=== PATIENT | male | born 1985 ===

== ENCOUNTER 2018-01-29 02:24 | Inpatient (IN) | payer SELFPAY ==
--- NOTE | 2018-01-29 02:40 | C.PDOC ---
History Of Present Illness Patient presents with severe rlq abdominal pain after eating a sandwich at lunch. Pt hyperventilating with carpal spasms. No n/v/, some diarrhea Time Seen by Provider: 01/29/18 02:39 History Per: Patient, Family History/Exam Limitations: no limitations Onset/Duration Of Symptoms: Hrs Current Symptoms Are (Timing): Still Present Context: Food Severity: Severe Pain Scale Rating Of: 6 Location Of Pain/Discomfort: RLQ Radiation Of Pain To:: None Quality Of Discomfort: Sharp, Cramping, Stabbing Associated Symptoms: Nausea. denies: Fever, Chills, Vomiting Exacerbating Factors: None Alleviating Factors: None Last Bowel Movement: Yesterday Recent travel outside of the [place]: No Additional History Per: Family Past Medical History Reviewed: Historical Data, Nursing Documentation, Vital Signs Vital Signs: Last Vital Signs Temp 98.6 F 01/29/18 03:19 Pulse 84 01/29/18 03:19 Resp 22 01/29/18 03:19 BP 108/69 01/29/18 03:19 Pulse Ox 97 01/29/18 03:19 Family History: States: No Known Family Hx Review Of Systems Constitutional: Negative for: Fever, Chills Cardiovascular: Negative for: Chest Pain Respiratory: Negative for: Shortness of Breath Gastrointestinal: Positive for: Nausea, Abdominal Pain, Diarrhea. Negative for : Vomiting Genitourinary: Negative for: Dysuria Musculoskeletal: Negative for: Back Pain Skin: Negative for: Rash Neurological: Negative for: Weakness Psych: Positive for: Anxiety Physical Exam - Physical Exam Appears: Non-toxic Skin: Warm, Dry Head: Normacephalic Eye(s): bilateral: Normal Inspection Oral Mucosa: Dry Neck: Supple Chest: Symmetrical Cardiovascular: Rhythm Regular Respiratory: No Rales, No Rhonchi, No Wheezing, Other (hyperventilating) Gastrointestinal/Abdominal: Soft, Tenderness (rlq), No Distention, No Guarding, No Rebound Back: Normal Inspection Male Genital: No Inguinal Tenderness Extremity: Normal ROM, Other (carpal spasms) Extremity: Bilateral: Atraumatic Pulses: Left Dorsalis Pedis: Normal, Right Dorsalis Pedis: Normal Neurological/Psych: Oriented x3, Normal Speech Gait: Steady ED Course And Treatment - Laboratory Results Result Diagrams: 01/29/18 03:09 06/05/18 03:09 Pulse Ox Interpretation: Normal Disposition Counseled Patient/Family Regarding: Studies Performed, Diagnosis - Disposition Disposition: HOSPITALIZED Disposition Time: 02:39 Condition: FAIR - Clinical Impression Clinical Impression: Abdominal pain, Acute appendicitis Physician Patient Turnover Patient Signed Over To: Ricardo Novak Handoff Comments: pending call back from dr Langston, for admission Decision To Admit - Pt Status Changed To: Hospital Disposition Of: Inpatient - Admit Certification Admit to Inpatient:: After my assessment, the patient will require hospitalization for at least two midnights. This is because of the severity of symptoms shown, intensity of services needed, and/or the medical risk in this patient being treated as an outpatient. - InPatient: Physician Admission Certification:: After my assessment, the patient will require hospitalization for at least two midnights. This is because of the severity of symptoms shown, intensity of services needed, and/or the medical risk in this patient being treated as an outpatient. - . Bed Request Type: Regular Admitting Physician: Rigoberto Jennings Patient Diagnosis: Abdominal pain, Acute appendicitis
[2018-01-29 02:42] VITALS: BMI 27.4
[2018-01-29] MEDS ORDERED: Sodium Chloride 0.9% 1,000 ML IV ONE ×2 (02:42→03:39)
[2018-01-29] MEDS ORDERED: Sodium Chloride 0.9% 1,000 ML ONE ×2 (03:11→04:03)
[2018-01-29 03:14] LABS: BASO % 0.3 % (0.0-2.0); EOS % 0.1 % (0.0-4.0); HEMOGLOBIN 14.2 g/dL (12.0-18.0); LYMPH # 1.1 K/uL (1.0-4.3); LYMPH % 6.8 % (20.0-40.0); MEAN CELL VOLUME 87.6 fL (80.0-94.0); MEAN CORPUSCULAR HEMOGLOBIN 30.2 pg (27.0-31.0); MEAN CORPUSCULAR HGB CONC 34.5 g/dL (33.0-37.0); MEAN PLATELET VOLUME 8.5 fL (7.2-11.7); MONO # 1.1 K/uL (0.0-0.8); MONO % 6.7 % (0.0-10.0); NEUT # 14.2 K/uL (1.8-7.0); NEUT % 86.1 % (50.0-75.0); PLATELET COUNT 281 K/uL (130-400); RBC 4.68 Mil/uL (4.40-5.90); WHITE BLOOD COUNT 16.4 K/uL (4.8-10.8)
[2018-01-29 03:15] LABS: SQUAMOUS EPITHIAL 1 /hpf (0-5); URINE BILIRUBIN NEGATIVE (NEGATIVE); URINE BLOOD NEGATIVE (NEGATIVE); URINE CLARITY Clear (Clear); URINE COLOR Yellow (YELLOW); URINE GLUCOSE (UA) NORMAL (Normal); URINE LEUKOCYTE ESTERASE NEG Leu/uL (Negative); URINE PROTEIN 1+ mg/dL (NEGATIVE); URINE UROBILINOGEN NORMAL mg/dL (0.2-1.0)
[2018-01-29 03:17] LABS: VENOUS BLOOD GAS BASE EXCESS 0.4 mmol/L (0.0-2.0); VENOUS BLOOD GAS PCO2 31 mmHg (40-60); VENOUS BLOOD GAS PO2 20 mm/Hg (30-55); VENOUS BLOOD PH 7.48 (7.32-7.43)
[2018-01-29 03:22] LABS: INR 1.1; PROTHROMBIN TIME 12.3 SECONDS (9.7-12.2)
[2018-01-29] MEDS ORDERED: Piperacillin/Tazobact 3.375 gm 100 ML IVPB STA (03:30)
[2018-01-29 03:38] LABS: ALB/GLOB RATIO 1.4 (1.0-2.1); ALBUMIN 4.9 g/dL (3.5-5.0); ALT/SGPT 19 U/L (21-72); AST/SGOT 29 U/L (17-59); BLOOD UREA NITROGEN 15 mg/dL (9-20); CALCIUM 10.2 mg/dl (8.6-10.4); GFR AFRICAN-AMERICAN > 60; GFR NON-AFRICAN AMERICAN > 60; LIPASE 50 U/L (23-300)
[2018-01-29] MEDS ORDERED: Piperacillin/Tazobact 3.375 gm 100 ML IVPB ONE (03:41)
[2018-01-29 03:53] LABS: LYMPHOCYTE 8 % (20-40); MONOCYTE 7 % (0-10); NEUTROPHIL 85 % (50-75); TOTAL CELLS COUNTED 100
[2018-01-29 03:54] LABS: PLATELET ESTIMATE NORMAL (NORMAL)
[2018-01-29] MEDS ORDERED: Iodixanol 320 MG/ML 100 ML BOTTLE IV ONE (04:09)
--- NOTE | 2018-01-29 05:48 | CT ---
EXAM: CT Abdomen and Pelvis With Intravenous Contrast CLINICAL HISTORY: 32 years old, male; Pain; Abdominal pain; Additional info: Rlq abd pain, TECHNIQUE: Axial computed tomography images of the abdomen and pelvis with intravenous contrast. All CT scans at this facility use one or more dose reduction techniques, viz.: automated exposure control; ma/kV adjustment per patient size (including targeted exams where dose is matched to indication; i.e. head); or iterative reconstruction technique. Coronal and sagittal reformatted images were created and reviewed. CONTRAST: 100 mL of administered intravenously. COMPARISON: No relevant prior studies available. FINDINGS: Limitations: Motion artifact - mild. Lung bases: No acute findings. ABDOMEN: Liver: Unremarkable. No mass. Gallbladder and bile ducts: No calcified stones. No ductal dilation. Pancreas: No ductal dilation. No mass. Spleen: No splenomegaly. Adrenals: No mass. Kidneys and ureters: No mass. No hydronephrosis. Stomach and bowel: No definite mural thickening. No obstruction. PELVIS: Appendix: Enlarged appendix, measuring up to 1.4 cm in diameter. Mucosal enhancement. Mild stranding about appendix. Bladder: Unremarkable. Reproductive: Unremarkable as visualized. ABDOMEN and PELVIS: Intraperitoneal space: No significant fluid collection. No free air. Bones/joints: No acute fracture. Soft tissues: Unremarkable. Vasculature: Unremarkable. No aneurysm. Lymph nodes: No pathologically enlarged lymph nodes. IMPRESSION: 1. Acute appendicitis.
--- NOTE | 2018-01-29 07:42 | CP.PCM.HP ---
<Paras Wilson - Last Filed: 01/29/18 07:39> History of Present Illness - History of Present Illness History of Present Illness: History and Physical for Dr. Jennings 32 year old male presents with 1 day history of right lower abdominal pain. Patient describes the pain as sharp and 6/10. Patient states the pain originally began at 11 am yesterday in the right upper abdomen and then moved down to the right lower abdomen. He states pain is worse with movement. Patient tried alkaselzer and baking soda at home yesterday with no relief. Patient ate a sandwich at lunch yesterday but has not eaten since due to nausea. Patient stated he vomited twice yesterday the first of which was clear and the second was yellow. Patient states this has never happened to him before. Patient denies any fevers at home. CT scan was done in the ER which was significant for an acute appendicitis. PMH: denies Past surgical history: denies Allergies: denies Medications: denies Family history: father- [place], Mother- hypertension, 11 brothers and sisters- all well. Present on Admission - Present on Admission Any Indicators Present on Admission: No Review of Systems - Review of Systems All systems: reviewed and no additional remarkable complaints except - Constitutional Constitutional: absent: Anorexia, Chills, Fever, Headache - EENT Eyes: absent: Blurred Vision, Change in Vision Nose/Mouth/Throat: Nasal Congestion, Nasal Discharge - Cardiovascular Cardiovascular: absent: Chest Pain, Dyspnea - Respiratory Respiratory: absent: Dyspnea, Dyspnea on Exertion - Gastrointestinal Gastrointestinal: Abdominal Pain, Nausea, Vomiting. absent: Diarrhea - Genitourinary Genitourinary: absent: Dysuria - Integumentary Integumentary: absent: New Lesions, Skin Pain Past Patient History - Past Social History Smoking Status: Never Smoked - PSYCHIATRIC Hx Substance Use: No - SURGICAL HISTORY Hx Surgeries: No - ANESTHESIA Hx Anesthesia: No Meds Allergies/Adverse Reactions: Allergies Allergy/AdvReac Type Severity Reaction Status Date / Time No Known Allergies Allergy Verified 01/29/18 03:23 Physical Exam - Constitutional Appears: Non-toxic, No Acute Distress - Head Exam Head Exam: ATRAUMATIC, NORMOCEPHALIC - Eye Exam Eye Exam: EOMI, Normal appearance - ENT Exam ENT Exam: Mucous Membranes Moist - Respiratory Exam Respiratory Exam: NORMAL BREATHING PATTERN - Cardiovascular Exam Cardiovascular Exam: REGULAR RHYTHM, +S1, +S2 - GI/Abdominal Exam GI & Abdominal Exam: Soft. absent: Distended, Firm, Guarding, Hernia - Neurological Exam Neurological exam: Alert, Oriented x3 - Psychiatric Exam Psychiatric exam: Normal Affect, Normal Mood - Skin Skin Exam: Dry, Warm Results - Vital Signs Recent Vital Signs: Last Vital Signs Temp 98.6 F 01/29/18 03:19 Pulse 88 01/29/18 07:10 Resp 16 01/29/18 07:10 BP 103/53 L 01/29/18 07:10 Pulse Ox 97 01/29/18 07:10 - Labs Result Diagrams: 01/29/18 03:09 01/29/18 03:09 Labs: Laboratory Results - last 24 hr 01/29/18 01/29/18 01/29/18 03:09 03:09 03:09 WBC 16.4 H RBC 4.68 Hgb 14.2 Hct 41.0 MCV 87.6 MCH 30.2 MCHC 34.5 RDW 13.0 Plt Count 281 MPV 8.5 Neut % (Auto) 86.1 H Lymph % (Auto) 6.8 L Christian % (Auto) 6.7 Eos % (Auto) 0.1 Baso % (Auto) 0.3 Neut # (Auto) 14.2 H Lymph # (Auto) 1.1 Christian # (Auto) 1.1 H Eos # (Auto) 0.0 Baso # (Auto) 0.0 Neutrophils % (Manual) 85 H Lymphocytes % (Manual) 8 L Monocytes % (Manual) 7 Platelet Estimate Normal PT 12.3 H INR 1.1 APTT 34 pO2 VBG pH VBG pCO2 VBG HCO3 VBG Total CO2 VBG O2 Sat (Calc) VBG Base Excess VBG Potassium Glucose Lactate Blood Gas Comments Crit Value Called To Crit Value Called By Crit Value Read Back Blood Gas Notified Time Sodium Potassium Chloride Carbon Dioxide Anion Gap BUN Creatinine Est GFR ( Amer) Est GFR (Non-Af Amer) Random Glucose Calcium Total Bilirubin AST ALT Alkaline Phosphatase Total Protein Albumin Globulin Albumin/Globulin Ratio Lipase Venous Blood Potassium Urine Color Yellow Urine Clarity Clear Urine pH 8.0 Ur Specific [place] 1.026 Urine Protein 1+ H Urine Glucose (UA) Normal Urine Ketones 1+ H Urine Blood Negative Urine Nitrate Negative Urine Bilirubin Negative Urine Urobilinogen Normal Ur Leukocyte Esterase Neg Urine WBC (Auto) < 1 Urine RBC (Auto) < 1 Ur Squamous Epith Cells 1 01/29/18 01/29/18 03:09 03:10 WBC RBC Hgb Hct MCV MCH MCHC RDW Plt Count MPV Neut % (Auto) Lymph % (Auto) Christian % (Auto) Eos % (Auto) Baso % (Auto) Neut # (Auto) Lymph # (Auto) Christian # (Auto) Eos # (Auto) Baso # (Auto) Neutrophils % (Manual) Lymphocytes % (Manual) Monocytes % (Manual) Platelet Estimate PT INR APTT pO2 20 L VBG pH 7.48 H VBG pCO2 31 L VBG HCO3 23.6 VBG Total CO2 24.1 VBG O2 Sat (Calc) 36.8 L VBG Base Excess 0.4 VBG Potassium 3.0 L Glucose 144 H Lactate 4.3 H* Blood Gas Comments Lactate high Crit Value Called To Dr murphy Crit Value Called By Jad smith Crit Value Read Back Y Blood Gas Notified Time 316 Sodium 145 141.0 Potassium 3.4 L Chloride 103 106.0 Carbon Dioxide 23 Anion Gap 22 H BUN 15 Creatinine 0.7 L Est GFR ( Amer) > 60 Est GFR (Non-Af Amer) > 60 Random Glucose 141 H Calcium 10.2 Total Bilirubin 0.6 AST 29 ALT 19 L Alkaline Phosphatase 98 Total Protein 8.3 Albumin 4.9 Globulin 3.4 Albumin/Globulin Ratio 1.4 Lipase 50 Venous Blood Potassium 3.0 L Urine Color Urine Clarity Urine pH Ur Specific [place] Urine Protein Urine Glucose (UA) Urine Ketones Urine Blood Urine Nitrate Urine Bilirubin Urine Urobilinogen Ur Leukocyte Esterase Urine WBC (Auto) Urine RBC (Auto) Ur Squamous Epith Cells Assessment & Plan - Assessment and Plan (Free Text) Assessment: 32M with an acute appendicitis Plan: NPO IVF ABX OR today for appendectomy D/W Dr. Michaela Wilson PGY2 <Rigoberto Jennings - Last Filed: 01/30/18 20:12> Results - Vital Signs Recent Vital Signs: Last Vital Signs Temp 98.8 F 01/30/18 08:50 Pulse 91 H 01/30/18 08:50 Resp 20 01/30/18 08:50 BP 117/69 01/30/18 08:50 Pulse Ox 97 01/30/18 08:50 - Labs Result Diagrams: 01/30/18 11:34 01/29/18 03:09 Labs: Laboratory Results - last 24 hr 01/30/18 11:34 WBC 9.9 RBC 4.07 L Hgb 12.5 Hct 35.9 MCV 88.2 MCH 30.8 MCHC 34.9 RDW 13.0 Plt Count 206 MPV 8.7 Neut % (Auto) 73.5 Lymph % (Auto) 17.0 L Christian % (Auto) 7.7 Eos % (Auto) 1.3 Baso % (Auto) 0.5 Neut # (Auto) 7.3 H Lymph # (Auto) 1.7 Christian # (Auto) 0.8 Eos # (Auto) 0.1 Baso # (Auto) 0.0 Attending/Attestation - Attestation I have personally seen and examined this patient.: Yes I have fully participated in the care of the patient.: Yes I have reviewed all pertinent clinical information: Yes Notes (Text): Pt was seen and examined at bedside Agree with above note and assessment Pt with RLQ pain and nausea Abdomen: Soft, RLQ Tendernss, ND Labs and radiology reviewed Ass: Acute Appendicitis, Leucocytosis Plan : OR for Lap Appendectomy Consent EKG ,CXR CBC, BMP,PT/INR Plan d.w pt in detail Risk and benefit explained in detail.
[2018-01-29] MEDS ORDERED: HYDROmorphone 0.5 mg/0.5 ml ISec IVP PRN ×2 (08:09→19:48)
[2018-01-29] MEDS: Lactated Ringer's 1,000 ML IV SCH ×2 (09:34→20:07)
[2018-01-29] MEDS: Piperacillin/Tazobact 3.375 GM in Sodium Chloride 100 ML IVPB SCH ×2 (09:37→16:34)
[2018-01-29] MEDS ORDERED: Neostigmine Methylsulfate 3mg/3ml Syringe IV ONE (18:56)
[2018-01-29] MEDS ORDERED: Rocuronium 10 mg/ml (5 ml) ONE (18:56)
[2018-01-29] MEDS ORDERED: Midazolam 2 MG/2 ML VIAL ONE (18:56)
[2018-01-29] MEDS ORDERED: Propofol 10 mg/ml Inj (20 ML) ONE (18:56)
[2018-01-29] MEDS ORDERED: ceFAZolin 1 gm in NS 1 GM/100 ML BAG IVPB ONE (19:04)
[2018-01-29] MEDS ORDERED: Bupivacaine HCl 0.25% PF (30 ml) Inj ONE (19:05)
[2018-01-29] MEDS ORDERED: Lidocaine/Epinephrine 1% 1:100000 10 ML IJ ONE (19:05)
--- NOTE | 2018-01-29 20:09 | PCM.SURG1 ---
Surgeon's Initial Post Op Note - Surgeon's Notes Surgeon: Dr. Jennings Director Of Knowledge Management: Dr. Yip PGY-3 Type of Anesthesia: General Endo Anesthesia Administered By: Dr. Harvey Pre-Operative Diagnosis: Acute Appendicitis Operative Findings: See operative report Post-Operative Diagnosis: Same Operation Performed: Laparoscopic Appendectomy Specimen/Specimens Removed: appendix Estimated Blood Loss: EBL {In ML}: 10 Blood Products Given: N/A Drains Used: No Drains Post-Op Condition: Good Date of Surgery/Procedure: 01/29/18 Time of Surgery/Procedure: 20:09
[2018-01-29] MEDS ORDERED: Oxycodone/Acetaminophen 5/325 mg Tab PO PRN (20:10)
[2018-01-29 23:58] VITALS: RESP 20
[2018-01-30] MEDS: Piperacillin/Tazobact 3.375 GM in Sodium Chloride 100 ML IVPB SCH ×2 (00:09→08:48)
[2018-01-30] MEDS: Lactated Ringer's 1,000 ML IV SCH ×2 (00:12→08:48)
--- NOTE | 2018-01-30 06:35 | OP ---
PROCEDURE DATE: 01/29/2018 PREOPERATIVE DIAGNOSIS: Acute appendicitis with leukocytosis. POSTOPERATIVE DIAGNOSES: 1. Acute suppurative appendicitis. 2. Pelvic abscess. PROCEDURES DONE: 1. Laparoscopic appendectomy. 2. Laparoscopic drainage of pelvic abscess. SURGEON: Rigoberto Jennings MD [employer] ORIGINATOR ASSISTANT: Roxana Yip DO, PGY-2 resident. ANESTHESIA: General endotracheal tube anesthesia. ESTIMATED BLOOD LOSS: Around 10 mL. DRAINS: None. PATHOLOGY: The appendix was sent for the pathology. COMPLICATIONS: None. INTRAOPERATIVE FINDINGS: The patient had acute suppurative appendicitis with pelvic abscess and localized peritonitis. DESCRIPTION OF PROCEDURE: On intraoperative steps, this is a 32-year-old male who was diagnosed with acute appendicitis. The patient was consented for the laparoscopic appendectomy, possible open, brought to the OR, placed supine on the operating room table. After induction of anesthesia, abdomen was prepped and draped in the usual sterile fashion. The supraumbilical transverse incision was made after incising skin, subcutaneous tissue and the fascia. The Vargas port was placed, pneumo was created. Another 5-mm port was placed in the suprapubic region. A 12-mm port was placed in the left lower quadrant. Grasper and dissector were introduced. The omentum was completely walled off the appendix, and the appendix was identified. There was a pelvic abscess that was drained, and suction irrigation of the pelvic area as well as the periappendicular area was done. The mesoappendix was resected with a harmonic scalpel. Base of the appendix was resected with the VICENTA. The appendix was taken in an EndoCatch bag, taken out through the umbilical port site and sent off the table for the pathology. There was a proper hemostasis in each and every part of the procedure. After proper suction irrigation of the pelvic area at the site of the abscess one more time and after proper hemostasis, all the ports were taken out and under vision, pneumo was deflated. The umbilical port site and the left lower quadrant port site were closed in 2 layers, the fascia with 0 Vicryl and skin with a 4-0 Monocryl, and dry sterile dressing was applied. The patient tolerated the procedure well. Count of the instruments and gauze was correct. There was no apparent complication. The patient was extubated in the OR and sent to the postanesthesia care unit in stable condition. Rigoberto Jennings MD [facility] # [id number]
[2018-01-30 08:50] VITALS: BP 117/69; PULSE 91; TEMP 98.8; O2SAT 97
[2018-01-30 11:47] LABS: BASO % 0.5 % (0.0-2.0); EOS # 0.1 K/uL (0.0-0.7); EOS % 1.3 % (0.0-4.0); HEMOGLOBIN 12.5 g/dL (12.0-18.0); LYMPH # 1.7 K/uL (1.0-4.3); MEAN CELL VOLUME 88.2 fL (80.0-94.0); MEAN CORPUSCULAR HEMOGLOBIN 30.8 pg (27.0-31.0); MEAN CORPUSCULAR HGB CONC 34.9 g/dL (33.0-37.0); MEAN PLATELET VOLUME 8.7 fL (7.2-11.7); MONO # 0.8 K/uL (0.0-0.8); MONO % 7.7 % (0.0-10.0); NEUT # 7.3 K/uL (1.8-7.0); NEUT % 73.5 % (50.0-75.0); RBC 4.07 Mil/uL (4.40-5.90); WHITE BLOOD COUNT 9.9 K/uL (4.8-10.8)
[2018-01-30] MEDS ORDERED: Pneumococcal 23-Valent Vaccine IM ONE (12:30)
--- NOTE | 2018-01-30 17:16 | CP.PCM.DIS ---
Provider - Provider Date of Admission: 01/29/18 06:49 Attending physician: Rigoberto Jennings MD Time Spent in preparation of Discharge (in minutes): 45 Hospital Course - Lab Results Lab Results: Micro Results 01/29/18 03:30 Blood-Venous Blood Culture - Preliminary NO GROWTH AFTER 24 HOURS 01/29/18 02:45 Blood-Venous Blood Culture - Preliminary NO GROWTH AFTER 24 HOURS Most Recent Lab Values WBC 9.9 K/uL (4.8-10.8) 01/30/18 11:34 RBC 4.07 Mil/uL (4.40-5.90) L 01/30/18 11:34 Hgb 12.5 g/dL (12.0-18.0) 01/30/18 11:34 Hct 35.9 % (35.0-51.0) 01/30/18 11:34 MCV 88.2 fL (80.0-94.0) 01/30/18 11:34 MCH 30.8 pg (27.0-31.0) 01/30/18 11:34 MCHC 34.9 g/dL (33.0-37.0) 01/30/18 11:34 RDW 13.0 % (11.5-14.5) 01/30/18 11:34 Plt Count 206 K/uL (130-400) 01/30/18 11:34 MPV 8.7 fL (7.2-11.7) 01/30/18 11:34 Neut % (Auto) 73.5 % (50.0-75.0) 01/30/18 11:34 Lymph % (Auto) 17.0 % (20.0-40.0) L 01/30/18 11:34 [place] % (Auto) 7.7 % (0.0-10.0) 01/30/18 11:34 Eos % (Auto) 1.3 % (0.0-4.0) 01/30/18 11:34 Baso % (Auto) 0.5 % (0.0-2.0) 01/30/18 11:34 Neut # (Auto) 7.3 K/uL (1.8-7.0) H 01/30/18 11:34 Lymph # (Auto) 1.7 K/uL (1.0-4.3) 01/30/18 11:34 [place] # (Auto) 0.8 K/uL (0.0-0.8) 01/30/18 11:34 Eos # (Auto) 0.1 K/uL (0.0-0.7) 01/30/18 11:34 Baso # (Auto) 0.0 K/uL (0.0-0.2) 01/30/18 11:34 Neutrophils % (Manual) 85 % (50-75) H 01/29/18 03:09 Lymphocytes % (Manual) 8 % (20-40) L 01/29/18 03:09 Monocytes % (Manual) 7 % (0-10) 01/29/18 03:09 Platelet Estimate Normal (NORMAL) 01/29/18 03:09 PT 12.3 SECONDS (9.7-12.2) H 01/29/18 03:09 INR 1.1 01/29/18 03:09 APTT 34 SECONDS (21-34) 01/29/18 03:09 pO2 20 mm/Hg (30-55) L 01/29/18 03:10 VBG pH 7.48 (7.32-7.43) H 01/29/18 03:10 VBG pCO2 31 mmHg (40-60) L 01/29/18 03:10 VBG HCO3 23.6 mmol/L 01/29/18 03:10 VBG Total CO2 24.1 mmol/L (22-28) 01/29/18 03:10 VBG O2 Sat (Calc) 36.8 % (40-65) L 01/29/18 03:10 VBG Base Excess 0.4 mmol/L (0.0-2.0) 01/29/18 03:10 VBG Potassium 3.0 mmol/L (3.6-5.2) L 01/29/18 03:10 Sodium 141.0 mmol/l (132-148) 01/29/18 03:10 Chloride 106.0 mmol/L (98-107) 01/29/18 03:10 Glucose 144 mg/dl (75-110) H 01/29/18 03:10 Lactate 4.3 mmol/L (0.7-2.1) H* 01/29/18 03:10 Blood Gas Comments Lactate high 01/29/18 03:10 Crit Value Called To Dr murphy 01/29/18 03:10 Crit Value Called By Jad smith 01/29/18 03:10 Crit Value Read Back Y 01/29/18 03:10 Blood Gas Notified Time 316 01/29/18 03:10 Sodium 145 mmol/L (132-148) 01/29/18 03:09 Potassium 3.4 mmol/L (3.6-5.2) L 01/29/18 03:09 Chloride 103 mmol/L (98-107) 01/29/18 03:09 Carbon Dioxide 23 mmol/L (22-30) 01/29/18 03:09 Anion Gap 22 (10-20) H 01/29/18 03:09 BUN 15 mg/dL (9-20) 01/29/18 03:09 Creatinine 0.7 mg/dL (0.8-1.5) L 01/29/18 03:09 Est GFR ( Amer) > 60 01/29/18 03:09 Est GFR (Non-Af Amer) > 60 01/29/18 03:09 Random Glucose 141 mg/dL (75-110) H 01/29/18 03:09 Calcium 10.2 mg/dl (8.6-10.4) 01/29/18 03:09 Total Bilirubin 0.6 mg/dL (0.2-1.3) 01/29/18 03:09 AST 29 U/L (17-59) 01/29/18 03:09 ALT 19 U/L (21-72) L 01/29/18 03:09 Alkaline Phosphatase 98 U/L (38-126) 01/29/18 03:09 Total Protein 8.3 g/dL (6.3-8.3) 01/29/18 03:09 Albumin 4.9 g/dL (3.5-5.0) 01/29/18 03:09 Globulin 3.4 gm/dL (2.2-3.9) 01/29/18 03:09 Albumin/Globulin Ratio 1.4 (1.0-2.1) 01/29/18 03:09 Lipase 50 U/L (23-300) 01/29/18 03:09 Venous Blood Potassium 3.0 mmol/L (3.6-5.2) L 01/29/18 03:10 Urine Color Yellow (YELLOW) 01/29/18 03:09 Urine Clarity Clear (Clear) 01/29/18 03:09 Urine pH 8.0 (5.0-8.0) 01/29/18 03:09 Ur Specific [place] 1.026 (1.003-1.030) 01/29/18 03:09 Urine Protein 1+ mg/dL (NEGATIVE) H 01/29/18 03:09 Urine Glucose (UA) Normal mg/dL (Normal) 01/29/18 03:09 Urine Ketones 1+ mg/dL (NEGATIVE) H 01/29/18 03:09 Urine Blood Negative (NEGATIVE) 01/29/18 03:09 Urine Nitrate Negative (NEGATIVE) 01/29/18 03:09 Urine Bilirubin Negative (NEGATIVE) 01/29/18 03:09 Urine Urobilinogen Normal mg/dL (0.2-1.0) 01/29/18 03:09 Ur Leukocyte Esterase Neg [place]/uL (Negative) 01/29/18 03:09 Urine WBC (Auto) < 1 /hpf (0-5) 01/29/18 03:09 Urine RBC (Auto) < 1 /hpf (0-3) 01/29/18 03:09 Ur Squamous Epith Cells 1 /hpf (0-5) 01/29/18 03:09 - Hospital Course Hospital Course: 32 M w no pmh came with RLQ abd pain. CT showed appendicitis and WBC was elevated. PT was taken to OR for appendectomy . Tolerated it well. Next day WBC went down. Denies fever, nausea. Tolerated diet. VOided. Discharge Exam - Head Exam Head Exam: ATRAUMATIC, NORMOCEPHALIC - Eye Exam Eye Exam: EOMI, Normal appearance, PERRL Pupil Exam: NORMAL ACCOMODATION, PERRL - ENT Exam ENT Exam: Mucous Membranes Moist - Neck Exam Neck exam: Full Rom - Respiratory Exam Respiratory Exam: NORMAL BREATHING PATTERN, UNREMARKABLE - Cardiovascular Exam Cardiovascular Exam: REGULAR RHYTHM, +S1, +S2 - GI/Abdominal Exam GI & Abdominal Exam: Normal Bowel Sounds, Soft, Tenderness. absent: Distended, Firm, Guarding, Hernia, Rebound, Rigid - Extremities Exam Extremities exam: full ROM - Back Exam Back exam: FULL ROM - Neurological Exam Neurological exam: Alert, CN II-XII Intact, Normal Gait, Oriented x3, Reflexes Normal - Psychiatric Exam Psychiatric exam: Normal Affect, Normal Mood - Skin Skin Exam: Dry, Intact, Normal Color, Warm Discharge Plan - Follow Up Plan Condition: FAIR Disposition: HOME/ ROUTINE Instructions: Appendicitis, Adult (DC), Pneumococcal Polysaccharide Vaccine (23 -Valent), Appendectomy, Laparoscopic Surgery (DC) Additional Instructions: follow up at Dr. Jennings's office in 1 -2 weeks. No heavylifting in 1 month Ok to return to work next week. Ok to take shower tomorrow. Take bandaid off. Keep white strips off . Referrals: Rigoberto Jennings MD [Staff Provider] -
== END 2018-01-30 13:13 | disposition home or self-care (01) | DRG 340 ==
LOC: C.ER 02:24 → C.3T 06:49
PROVIDERS: ADMIT Surgery Surgical Critical Care; ATTEND Surgery Surgical Critical Care
PROC: 0W9J4ZZ Drainage of Pelvic Cavity, Percutaneous Endoscopic Approach (ICD-10-PCS; 2018-01-29)
PROC: 0DTJ4ZZ Resection of Appendix, Percutaneous Endoscopic Approach (ICD-10-PCS; principal; 2018-01-29 19:04)
DX: K35.3 Acute appendicitis with localized peritonitis (principal)